=== PATIENT | female | born 1960 | race Caucasian/White ===

== ENCOUNTER 2022-05-01 16:45 | Emergency (ER) | payer SELFPAY ==
[2022-05-01] MEDS ORDERED: Acetaminophen 500 MG TAB ONE (17:03)
== END 2022-05-01 17:41 | disposition home or self-care (01) ==
LOC: BURERS 16:45
DX: B34.9 Viral infection, unspecified (principal); I10 Essential (primary) hypertension; I25.2 Old myocardial infarction; F17.210 Nicotine dependence, cigarettes, uncomplicated
CPT/HCPCS: 87081; 87430; 87804; 99283